=== PATIENT | female | born 1995 | race Caucasian/White ===

== ENCOUNTER 2018-06-18 08:48 | Emergency (ER) | payer OTHER, SELFPAY ==
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
== END 2018-06-18 11:27 | disposition home or self-care (01) ==
LOC: ERS 08:48
DX: S16.1XXA Strain of muscle, fascia and tendon at neck level, initial encounter (principal); V89.2XXA Person injured in unspecified motor-vehicle accident, traffic, initial encounter
CPT/HCPCS: 70450; 72125

== ENCOUNTER 2018-08-01 09:54 | Emergency (ER) | payer OTHER, SELFPAY ==
[2018-08-01] MEDS ORDERED: Ibuprofen 200 MG TAB ONE (11:14)
--- NOTE | 2018-08-01 13:16 | RAD ---
CHEST ONE VIEW: HISTORY: Chest pain. COMPARISON: None. FINDINGS: The cardiac silhouette is magnified by projection. Shallow inspiration accentuates pulmonary marking s. The mediastinum is midline. No lobar consolidation or evidence of pneumothorax. monitor car operator leads overly the chest. IMPRESSION: No active cardiopulmonary abnormalities are demonstrated. POS: H
[2018-08-01 13:21] LABS: ALT (SGPT) 23 U/L (8-55); AST (SGOT) 18 U/L (5-34); Albumin 4.9 g/dL (3.5-5.0); Alkaline Phosphatase 66 U/L (40-150); Anion Gap 14 mmol/L (10-20); BUN (Urea Nitrogen) 9 mg/dL (7.0-18.7); Bilirubin, Total 0.9 mg/dL (0.2-1.2); Calc. Creatinine Clearance 0 mL/min (70-130); Calcium 9.8 mg/dL (7.8-10.44); Carbon Dioxide 22 mmol/L (22-29); Chloride 105 mmol/L (98-107); Estimated GFR-MDRD 73; Globulin 3.2 g/dL (2.4-3.5); Glucose 121 mg/dL (70-105); Potassium 3.8 mmol/L (3.5-5.1); Protein, Total 8.1 g/dL (6.0-8.3); Sodium 137 mmol/L (136-145)
[2018-08-01 13:22] LABS: Free T4 (Free Thyroxine) 1.23 ng/dL (0.70-1.48); Thyroid Stimulating Hormone 1.3521 uIU/mL (0.35-4.94)
[2018-08-01 13:23] LABS: CKMB 0.7 ng/mL (0-6.6); Troponin I Less than 0.010 ng/mL (< 0.028)
[2018-08-01 13:29] LABS: BHCG - Serum Negative (NEGATIVE); Bilirubin Negative (Negative); Blood, Urine Negative (Negative); Clarity CLOUDY (Clear); Glucose, Urine (Dipstick) Negative (Negative); Leukocyte Negative (Negative); Nitrite Negative (Negative); Pregs Control Background? CLEAR/WHITE (CLR/WHITE); Pregs Control Bar Appear? YES (CONTROL BAR); Protein, Urine (Dipstick) Negative (Neg-Trace); Specific Gravity, Urine 1.009 (1.002-1.036); Urobilinogen 0.2 mg/dL (0.2-1.0)
[2018-08-01 13:47] LABS: Bacteria/HPF Rare-Few HPF (None Seen); Hyaline Casts/LPF NONE SEEN LPF (0-3 Hyaline); RBC/HPF None Seen HPF (0-3); WBC/HPF 0-3 HPF (0-3)
[2018-08-01 13:52] LABS: #Basophils 0.1 thou/uL (0.0-0.2); #Monocytes 0.3 thou/uL (0.11-0.59); #Neutrophils 6.3 thou/uL (1.40-6.50); %Eosinophils 0.6 % (0.0-10.0); %Lymphocytes 22.7 % (21.0-51.0); %Neutrophils 72.8 % (42.0-75.0); Mean Corpuscular HGB CONC 34.1 g/dL (32.0-36.0); Mean Corpuscular Hemoglobin 30.2 pg (27.0-31.0); Mean Corpuscular Volume 88.8 fL (78.0-98.0); Mean Platelet Volume 7.9 fL (7.4-10.4); Platelet Count 303 thou/uL (130-400); RBC Distribution Width 12.1 % (11.5-14.5); Red Blood Cell (RBC) Count 4.63 mill/uL (4.20-5.40); White Blood Cell (WBC) Count 8.6 thou/uL (4.8-10.8)
== END 2018-08-01 17:11 | disposition home or self-care (01) ==
LOC: ERS 09:54
DX: R07.89 Other chest pain (principal); R00.0 Tachycardia, unspecified; I10 Essential (primary) hypertension; F41.9 Anxiety disorder, unspecified
CPT/HCPCS: 71045; 80053; 81001; 82553; 84439; 84443; 84484; 84703; 85025; 85379

== ENCOUNTER 2018-08-21 20:28 | Emergency (ER) | payer SELFPAY ==
[2018-08-21] MEDS ORDERED: Famotidine/PF 20 mg/2ml Vial ONE (21:17)
[2018-08-21 21:34] LABS: #Basophils 0.1 thou/uL (0.0-0.2); #Eosinphils 0.1 thou/uL (0.0-0.7); #Lymphocytes 2.4 thou/uL (1.20-3.40); #Monocytes 0.4 thou/uL (0.11-0.59); #Neutrophils 5.6 thou/uL (1.40-6.50); %Basophils 0.9 % (0.0-1.0); %Eosinophils 1.3 % (0.0-10.0); %Lymphocytes 27.9 % (21.0-51.0); %Monocytes 4.5 % (0.0-10.0); %Neutrophils 65.4 % (42.0-75.0); Hemoglobin 13.7 g/dL (12.0-16.0); Mean Corpuscular HGB CONC 35.1 g/dL (32.0-36.0); Mean Corpuscular Hemoglobin 30.6 pg (27.0-31.0); Mean Corpuscular Volume 87.2 fL (78.0-98.0); Mean Platelet Volume 7.7 fL (7.4-10.4); Platelet Count 319 thou/uL (130-400); RBC Distribution Width 11.6 % (11.5-14.5); Red Blood Cell (RBC) Count 4.47 mill/uL (4.20-5.40); White Blood Cell (WBC) Count 8.5 thou/uL (4.8-10.8)
[2018-08-21 21:45] LABS: BHCG - Serum Negative (NEGATIVE); Pregs Control Background? CLEAR/WHITE (CLR/WHITE); Pregs Control Bar Appear? YES (CONTROL BAR)
[2018-08-21 22:01] LABS: ALT (SGPT) 22 U/L (8-55); AST (SGOT) 28 U/L (5-34); Albumin 5.2 g/dL (3.5-5.0); Alkaline Phosphatase 67 U/L (40-150); Anion Gap 17 mmol/L (10-20); BUN (Urea Nitrogen) 11 mg/dL (7.0-18.7); Bilirubin, Total 0.4 mg/dL (0.2-1.2); Calc. Creatinine Clearance 0 mL/min (70-130); Calcium 10.1 mg/dL (7.8-10.44); Carbon Dioxide 21 mmol/L (22-29); Chloride 102 mmol/L (98-107); Estimated GFR-MDRD 69; Globulin 4.1 g/dL (2.4-3.5); Glucose 110 mg/dL (70-105); Lipase 85 U/L (8-78); Potassium 4.1 mmol/L (3.5-5.1); Protein, Total 9.3 g/dL (6.0-8.3); Sodium 136 mmol/L (136-145)
[2018-08-21 22:22] LABS: Bilirubin Negative (Negative); Blood, Urine Negative (Negative); Clarity CLEAR (Clear); Glucose, Urine (Dipstick) Negative (Negative); Leukocyte Negative (Negative); Nitrite Negative (Negative); Protein, Urine (Dipstick) Negative (Neg-Trace); Specific Gravity, Urine 1.012 (1.002-1.036); Urobilinogen 0.2 mg/dL (0.2-1.0)
--- NOTE | 2018-09-01 16:41 | EKG ---
Test Reason : Blood Pressure : / mmHG Vent. Rate : 090 BPM Atrial Rate : 090 BPM P-R Int : 180 ms QRS Dur : 082 ms QT Int : 360 ms P-R-T Axes : 045 019 032 degrees QTc Int : 440 ms Normal sinus rhythm Normal ECG Confirmed by LILI BANKS DO ([id number]), city editor GAURI CHOI ([id number] on 09/01/2018 4:40:48 PM Referred By: Confirmed By:LILI BANKS DO
== END 2018-08-21 21:35 | disposition home or self-care (01) ==
LOC: ERS 20:28
DX: R10.9 Unspecified abdominal pain (principal); R53.1 Weakness; R20.0 Anesthesia of skin; I10 Essential (primary) hypertension; J45.909 Unspecified asthma, uncomplicated; Z79.899 Other long term (current) drug therapy
CPT/HCPCS: 80053; 81003; 83690; 84703; 85025; 93005; 96361; 96374; S0028

== ENCOUNTER 2019-02-11 09:15 | Outpatient (CLI) | payer OTHER ==
--- NOTE | 2019-02-11 10:00 | ULT ---
EXAM: US Gallbladder RUQ CLINICAL HISTORY: Epigastric pain. COMPARISON: None. FINDINGS: Pancreas: The head of the pancreas has a normal echotexture. The remainder the pancreas is obscured by bowel gas Liver:Normal echotexture. No hepatic masses or intrahepatic biliary dilatation. The contour of the he patic margins maintained. Right hepatic lobe measures 15.7 cm. Main portal vein is patent. Appropriate directional flow. Gallbladder: No sonographic evidence of cholelithiasis, gallbladder wall thickening or pericholecysti c fluid. Gonzáles's sign:Not commented upon Bile ducts: 0.5 cm common bile duct diameter Right kidney: No hydronephrosis Right kidney measuring 11.2 x 5.1 x 5.3 cm in length. No cortical mas ses IMPRESSION: Unremarkable exam.
== END 2019-02-11 09:16 | disposition home or self-care (01) ==
LOC: BICULT 09:15
PROVIDERS: ATTEND Internal Medicine Gastroenterology
DX: K92.1 Melena (principal); R10.13 Epigastric pain; K59.00 Constipation, unspecified; K60.2 Anal fissure, unspecified; B96.81 Helicobacter pylori [H. pylori] as the cause of diseases classified elsewhere
CPT/HCPCS: 76705

== ENCOUNTER 2019-11-18 08:42 | Emergency (ER) | payer SELFPAY ==
[2019-11-18] MEDS ORDERED: Ketorolac Tromethamine 60 MG/2 ML VIAL ONE (10:42)
[2019-11-18] MEDS ORDERED: Diazepam 5 MG TAB ONE (10:42)
== END 2019-11-18 10:59 | disposition home or self-care (01) ==
LOC: ERS 08:42
DX: E04.9 Nontoxic goiter, unspecified (principal); M54.2 Cervicalgia; I10 Essential (primary) hypertension
CPT/HCPCS: 96372; 99283; J1885

== ENCOUNTER 2020-06-23 19:05 | Emergency (ER) | payer OTHER ==
[2020-06-23 19:35] LABS: #Monocytes 0.4 thou/uL (0.11-0.59); #Neutrophils 7.1 thou/uL (1.40-6.50); %Basophils 0.3 % (0.0-1.0); %Eosinophils 0.4 % (0.0-10.0); %Lymphocytes 12.2 % (21.0-51.0); %Monocytes 4.7 % (0.0-10.0); %Neutrophils 82.5 % (42.0-75.0); Hemoglobin 11.6 g/dL (12.0-16.0); Mean Corpuscular HGB CONC 35.5 g/dL (32.0-36.0); Mean Corpuscular Hemoglobin 31.9 pg (27.0-31.0); Mean Corpuscular Volume 89.8 fL (78.0-98.0); Mean Platelet Volume 8.2 fL (7.4-10.4); Platelet Count 220 thou/uL (130-400); RBC Distribution Width 11.5 % (11.5-14.5); Red Blood Cell (RBC) Count 3.63 mill/uL (4.20-5.40); White Blood Cell (WBC) Count 8.6 thou/uL (4.8-10.8)
[2020-06-23] MEDS ORDERED: Famotidine/PF 20 mg/2ml Vial ONE (19:44)
[2020-06-23 19:57] LABS: ALT (SGPT) 8 U/L (8-55); AST (SGOT) 12 U/L (5-34); Albumin 3.8 g/dL (3.5-5.0); Alkaline Phosphatase 51 U/L (40-110); Anion Gap 8 mmol/L (10-20); BUN (Urea Nitrogen) 5 mg/dL (7.0-18.7); Bilirubin, Total 0.4 mg/dL (0.2-1.2); Calc. Creatinine Clearance 0 mL/min (70-130); Calcium 8.2 mg/dL (7.8-10.44); Carbon Dioxide 23 mmol/L (22-29); Chloride 107 mmol/L (98-107); Estimated GFR-MDRD Greater than 90; Globulin 2.5 g/dL (2.4-3.5); Glucose 92 mg/dL (70-105); Lipase 32 U/L (8-78); Potassium 3.6 mmol/L (3.5-5.1); Protein, Total 6.3 g/dL (6.0-8.3); Sodium 134 mmol/L (136-145)
--- NOTE | 2020-06-23 20:36 | ULT ---
EXAM: US Gallbladder RUQ CLINICAL HISTORY: Nausea. Vomiting.. COMPARISON: 02/11/2019 FINDINGS: Pancreas: The head and proximal pancreatic body have a normal echotexture Liver:Hepatic parenchyma has a normal echotexture. No hepatic masses or intrahepatic biliary dilatati on. Right hepatic lobe: 14.8 cm Gallbladder: No sonographic evidence of cholelithiasis, gallbladder wall thickening or pericholecysti c fluid. Gonzáles's sign:Negative Portal Vein: Patent. Appropriate directional flow Bile ducts: 0.3 cm common bile duct diameter Right kidney: No hydronephrosis. Right kidney measures 11.8 cm in length. IMPRESSION: No sonographic evidence of cholelithiasis or cholecystitis.
[2020-06-23] MEDS ORDERED: Mag-Al 1200 mg/1200 mg/30 ML UDCUP ONE (21:09)
[2020-06-23] MEDS ORDERED: Lidocaine Viscous Sol 2% 15 ml UD Cup ONE (21:09)
[2020-06-23] MEDS ORDERED: Sucralfate 1 GM/10 ML UDCUP ONE (21:20)
[2020-06-23 21:56] LABS: Bilirubin Negative (Negative); Blood, Urine Negative (Negative); Clarity Clear (Clear); Glucose, Urine (Dipstick) Normal (Negative); Ketone, Urine Negative (Negative); Leukocyte Negative Leu/uL (Negative); Nitrite Negative (Negative); Protein, Urine (Dipstick) Negative (Neg-Trace); Specific Gravity, Urine 1.018 (1.002-1.036); Urobilinogen Normal mg/dL (Less than 2)
[2020-06-23] MEDS ORDERED: Pantoprazole 40 MG VIAL ONE (22:12)
== END 2020-06-23 23:22 | disposition home or self-care (01) ==
LOC: ERS 19:05
DX: O99.612 Diseases of the digestive system complicating pregnancy, second trimester (principal); K25.9 Gastric ulcer, unspecified as acute or chronic, without hemorrhage or perforation; O10.912 Unspecified pre-existing hypertension complicating pregnancy, second trimester; O99.342 Other mental disorders complicating pregnancy, second trimester; F41.9 Anxiety disorder, unspecified; Z3A.14 14 weeks gestation of pregnancy
CPT/HCPCS: 36415; 76705; 80053; 81003; 83690; 83735; 85025; 93005; 96361; 96372; 96374; 96375; C9113; J0500; S0028

== ENCOUNTER 2021-02-16 09:25 | Emergency (ER) | payer OTHER ==
[2021-02-16] MEDS ORDERED: Acetaminophen 500 MG TAB ONE (10:13)
[2021-02-16] MEDS ORDERED: Metoclopramide HCl 10 MG/2 ML VIAL ONE (10:14)
[2021-02-16] MEDS ORDERED: diphenhydrAMINE 50 MG/ML VIAL ONE (10:14)
[2021-02-16 10:32] LABS: Bilirubin Negative (Negative); Blood, Urine Negative (Negative); Clarity Turbid (Clear); Glucose, Urine (Dipstick) Normal (Negative); Ketone, Urine Negative (Negative); Leukocyte Negative Leu/uL (Negative); Nitrite Negative (Negative); Protein, Urine (Dipstick) Negative (Neg-Trace); Specific Gravity, Urine 1.008 (1.002-1.036); Urobilinogen Normal mg/dL (Less than 2); pH, Urine 7.5 (5.0-9.0)
[2021-02-16 10:35] LABS: #Basophils 0.1 thou/uL (0.0-0.2); #Eosinphils 0.1 thou/uL (0.0-0.7); #Lymphocytes 1.5 thou/uL (1.20-3.40); #Monocytes 0.3 thou/uL (0.11-0.59); #Neutrophils 4.2 thou/uL (1.40-6.50); %Basophils 1.1 % (0.0-1.0); %Monocytes 4.2 % (0.0-10.0); %Neutrophils 67.7 % (42.0-75.0); Hemoglobin 12.4 g/dL (12.0-16.0); Mean Corpuscular HGB CONC 33.1 g/dL (32.0-36.0); Mean Corpuscular Hemoglobin 29.5 pg (27.0-31.0); Mean Corpuscular Volume 89.1 fL (78.0-98.0); Platelet Count 280 thou/uL (130-400); RBC Distribution Width 12.7 % (11.5-14.5); White Blood Cell (WBC) Count 6.2 thou/uL (4.8-10.8)
[2021-02-16 10:55] LABS: ALT (SGPT) 37 U/L (8-55); AST (SGOT) 25 U/L (5-34); Albumin 4.9 g/dL (3.5-5.0); Alkaline Phosphatase 67 U/L (40-110); Anion Gap 14 mmol/L (10-20); BUN (Urea Nitrogen) 12 mg/dL (7.0-18.7); Bilirubin, Total 0.6 mg/dL (0.2-1.2); Calc. Creatinine Clearance 0 mL/min (70-130); Calcium 10.1 mg/dL (7.8-10.44); Carbon Dioxide 25 mmol/L (22-29); Chloride 104 mmol/L (98-107); Globulin 3.2 g/dL (2.4-3.5); Glucose 89 mg/dL (70-105); Magnesium 2.2 mg/dL (1.6-2.6); Potassium 4.1 mmol/L (3.5-5.1); Protein, Total 8.1 g/dL (6.0-8.3); Sodium 139 mmol/L (136-145)
[2021-02-16] MEDS ORDERED: Ketorolac Tromethamine 30 MG/ML VIAL ONE (11:13)
[2021-02-16] MEDS ORDERED: Magnesium 2 GM/50 ML BAG (IN WATER) ONE (11:13)
[2021-02-16] MEDS ORDERED: Dexamethasone 4 mg/ml Vial ONE (11:13)
[2021-02-16 13:17] LABS: Pregnancy Test - Urine (BHCG) Negative (Negative); Pregu Control Background? CLEAR/WHITE (CLR/WHITE); Pregu Control Bar Appear? YES (CONTROL BAR); Specific Gravity 1.004 (1.002-1.036)
[2021-02-16] MEDS ORDERED: Valproate Sodium 500 MG in Sodium Chloride 0.9% 100 ML IVPB SCH (13:45)
== END 2021-02-16 15:58 | disposition home or self-care (01) ==
LOC: ERS 09:25
DX: R51.9 Headache, unspecified (principal); Z79.899 Other long term (current) drug therapy
CPT/HCPCS: 80053; 81003; 81025; 83735; 85025; 94760; 96365; 96366; 96367; 96375; J1100; J1200; J1885; J2765; J3475; J3490

== ENCOUNTER 2022-11-04 20:10 | Emergency (ER) | payer OTHER ==
[2022-11-04 21:18] LABS: #Eosinphils 0.1 thou/uL (0.0-0.7); #Lymphocytes 2.4 thou/uL (1.20-3.40); #Monocytes 0.5 thou/uL (0.11-0.59); #Neutrophils 5.3 thou/uL (1.40-6.50); %Basophils 0.3 % (0.0-1.0); %Eosinophils 1.1 % (0.0-10.0); %Lymphocytes 29.2 % (21.0-51.0); %Monocytes 5.4 % (0.0-10.0); %Neutrophils 63.9 % (42.0-75.0); Hemoglobin 12.9 g/dL (12.0-16.0); Mean Corpuscular HGB CONC 34.7 g/dL (32.0-36.0); Mean Corpuscular Hemoglobin 31.7 pg (27.0-31.0); Mean Corpuscular Volume 91.4 fl (78.0-98.0); Mean Platelet Volume 7.9 fL (7.4-10.4); Platelet Count 258 10x3/uL (130-400); RBC Distribution Width 11.3 % (11.5-14.5); Red Blood Cell (RBC) Count 4.08 mill/uL (4.20-5.40); White Blood Cell (WBC) Count 8.4 10x3/uL (4.8-10.8)
[2022-11-04 21:27] LABS: BHCG - Serum Negative (NEGATIVE); Pregs Control Background? CLEAR/WHITE (CLR/WHITE); Pregs Control Bar Appear? YES (CONTROL BAR)
[2022-11-04 21:38] LABS: ALT (SGPT) 9 U/L (8-55); AST (SGOT) 14 U/L (5-34); Albumin 4.7 g/dL (3.5-5.0); Alkaline Phosphatase 48 U/L (40-110); Anion Gap 11 mmol/L (10-20); BUN (Urea Nitrogen) 15 mg/dL (7.0-18.7); Bilirubin, Total 0.5 mg/dL (0.2-1.2); Calc. Creatinine Clearance 0 mL/min (70-130); Calcium 9.3 mg/dL (7.8-10.44); Carbon Dioxide 23 mmol/L (22-29); Chloride 106 mmol/L (98-107); Estimated GFR 100; Globulin 2.7 g/dL (2.4-3.5); Glucose 88 mg/dL (70-105); Potassium 4.1 mmol/L (3.5-5.1); Protein, Total 7.4 g/dL (6.0-8.3); Sodium 136 mmol/L (136-145)
[2022-11-04] MEDS ORDERED: Metoclopramide HCl 10 MG/2 ML VIAL ONE (22:36)
[2022-11-04] MEDS ORDERED: Ketorolac Tromethamine 30 MG/ML VIAL ONE (22:36)
[2022-11-04] MEDS ORDERED: Meclizine HCl 25 MG TAB ONE (22:36)
[2022-11-04 23:00] LABS: Bilirubin Negative (Negative); Blood, Urine Negative (Negative); Clarity Clear (Clear); Glucose, Urine (Dipstick) Normal (Negative); Ketone, Urine Negative (Negative); Leukocyte Negative Leu/uL (Negative); Nitrite Negative (Negative); Protein, Urine (Dipstick) Negative (Neg-Trace); Specific Gravity, Urine 1.031 (1.002-1.036); Urobilinogen Normal mg/dL (Less than 2); pH, Urine 5.5 (5.0-9.0)
[2022-11-05] MEDS ORDERED: Acetaminophen 500 MG TAB ONE (00:53)
[2022-11-05] MEDS ORDERED: Magnesium 2 GM/50 ML BAG (IN WATER) ONE (00:53)
== END 2022-11-05 04:15 | disposition home or self-care (01) ==
LOC: ERS 20:10
DX: R51.9 Headache, unspecified (principal); I10 Essential (primary) hypertension
CPT/HCPCS: 36415; 70450; 80053; 81003; 84703; 85025; 96374; 96375; J1885; J2765; J3475

== ENCOUNTER 2022-11-26 07:25 | Day surgery (SDC) | payer OTHER ==
[2022-11-22 12:46] VITALS: BMI 34.9
[2022-11-26] MEDS ORDERED: Bupivacaine/Epinephrine 0.25% 30 ML VIAL ONE (07:52)
[2022-11-26] MEDS ORDERED: CEFAZOLIN 2 GM VIAL ONE (08:47)
[2022-11-26] MEDS ORDERED: Sodium Chloride 0.9% 100 ML ONE (08:47)
[2022-11-26] MEDS ORDERED: Glycopyrrolate 0.2 MG/ML 5 ML SYRINGE ONE (08:49)
[2022-11-26] MEDS ORDERED: Dexamethasone 20 MG/5 ML VIAL ONE (08:49)
[2022-11-26] MEDS ORDERED: Rocuronium Bromide 10 MG/ML (10ML VIAL) ONE (08:49)
[2022-11-26] MEDS ORDERED: Ondansetron PF 4 MG/2 ML Vial ONE (08:49)
[2022-11-26] MEDS ORDERED: Lidocaine 1% PF 5 ML VIAL ONE (08:49)
[2022-11-26] MEDS ORDERED: NEOSTIGMINE 3 MG/3 ML SYR 3 MG/3 ML SYRINGE ONE (08:49)
[2022-11-26] MEDS ORDERED: PROPOFOL 200 MG/20 ML VIAL ONE (08:49)
[2022-11-26] MEDS ORDERED: fentaNYL PF 100 MCG/2 ML SYRINGE ONE (08:52)
[2022-11-26] MEDS ORDERED: Midazolam HCl 2 mg/2 ml Vial ONE (08:56)
[2022-11-26] MEDS ORDERED: Fentanyl 100 MCG/2 ML VIAL ONE ×2 (10:08→10:26)
[2022-11-26] MEDS ORDERED: HYDROcodone/Acetaminophen 5/325 mg Tablet ONE (11:16)
== END 2022-11-26 12:48 | disposition home or self-care (01) ==
LOC: SDC 07:25
PROVIDERS: ATTEND Surgery
DX: K80.44 Calculus of bile duct with chronic cholecystitis without obstruction (principal); K66.0 Peritoneal adhesions (postprocedural) (postinfection); I10 Essential (primary) hypertension; E66.9 Obesity, unspecified; Z68.34 Body mass index [BMI] 34.0-34.9, adult; Z87.891 Personal history of nicotine dependence; Z79.899 Other long term (current) drug therapy
CPT/HCPCS: 88304; C1776; J1100; J2250; J2405; J2704; J3010; J3490

== ENCOUNTER 2023-01-15 08:15 | Outpatient (CLI) | payer OTHER | END 2023-01-15 08:16 | disposition home or self-care (01) | LOC: BICRAD 08:15 | PROVIDERS: ATTEND Physician Assistant | DX: G44.229 Chronic tension-type headache, not intractable (principal) | CPT/HCPCS: 72040 ==

== ENCOUNTER 2023-04-26 09:35 | Outpatient (CLI) | payer OTHER ==
[~2023-04-26 09:35] MED LIST: Iopamidol-370 76% 500 ML MDV (1 ML CHARGE) ONE
== END 2023-04-26 09:36 | disposition home or self-care (01) ==
LOC: BICCT 09:35
PROVIDERS: ATTEND Physician Assistant Medical
DX: I88.0 Nonspecific mesenteric lymphadenitis (principal); R10.11 Right upper quadrant pain; R16.1 Splenomegaly, not elsewhere classified
CPT/HCPCS: 74177; Q9967

== ENCOUNTER 2024-05-01 07:58 | Outpatient (CLI) | payer BC | END 2024-05-01 07:59 | disposition home or self-care (01) | LOC: NM 07:58 | PROVIDERS: ATTEND Physician Assistant Medical | DX: D17.9 Benign lipomatous neoplasm, unspecified (principal); R10.12 Left upper quadrant pain | CPT/HCPCS: 78264; A9541 ==

== ENCOUNTER → 2024-10-09 | Day surgery (SDC) | payer BC ==
[~2024-10-09] MED LIST changes: -Iopamidol-370 76% 500 ML MDV (1 ML CHARGE) ONE; +Sodium Bicarbonate 2.5 MEQ/5 ML SDV ONE
[2024-10-09 12:26] LABS: CSF, Protein 27.4 mg/dL (15-40)
[2024-10-09 12:39] LABS: CSF Source CSF
[2024-10-09 12:40] LABS: CSF RBC Count - Manual 1 /cu.mm (None Seen); CSF WBC/NonHematics Count-Man 3 /cu.mm (0-5); Clarity Clear (Clear); Tube # 4
[2024-10-11 00:07] LABS: HSV 1 - DNA, CSF Negative (Negative); HSV 2 - DNA, CSF Negative (Negative)
== END ==
LOC: RAD 10:05
PROVIDERS: ATTEND Psychiatry & Neurology Neurology
PROC: 009U3ZX Drainage of Spinal Canal, Percutaneous Approach, Diagnostic (ICD-10-PCS; principal; 2024-10-09)
DX: R51.9 Headache, unspecified (principal)
CPT/HCPCS: 62270; 82945; 84157; 86592; 86612; 86635; 86698; 87529; 89051